=== PATIENT | female | born 1980 | race Two or more races ===

== ENCOUNTER → 2024-07-17 | Outpatient (CLI) | payer MEDICAID, SELFPAY ==
--- NOTE | 2024-07-17 09:30 | XR_ITS ---
Examination: Screening digital mammography, bilateral Computer aided detection 3-D breast Tomosynthesis, bilateral Date and time of exam: July 17, 2024 0941 hours Compared to mammograms dating to June 26, 2019 Indication: Screening Technique: Nonmagnified MLO, CC views of the breasts to been obtained, reconstructed from 3-D Tomosynthesis images. R2 computer aided detection program utilized for evaluation of suspicious masses and/or abnormal calcifications. 3-D Tomosynthesis images obtained. Findings: The breasts are heterogeneously dense, which may obscure small masses Breast biopsy marker inner upper right breast Benign calcifications No suspicious masses Impression: BI-RADS Category 0: Incomplete: Need additional imaging evaluation Please see the left breast sonogram report July 28, 2023 demonstrating 2:00 10:00 nodules, follow-up left breast sonography at this time strongly recommended
== END | disposition home or self-care (01) ==
PROVIDERS: PCP Nurse Practitioner Family; Referring Provider Nurse Practitioner Family; Visit Provider Nurse Practitioner Family
DX: Z12.31 Encounter for screening mammogram for malignant neoplasm of breast (principal); N63.22 Unspecified lump in the left breast, upper inner quadrant; N63.21 Unspecified lump in the left breast, upper outer quadrant
CPT/HCPCS: 77063; 77067

== ENCOUNTER → 2024-08-22 | Outpatient (CLI) | payer MEDICAID, SELFPAY ==
--- NOTE | 2024-08-22 10:20 | XR_ITS ---
Examination: Hand, right 3 views Technique: Hand AP, oblique, lateral 3 views Date and time of exam: August 22, 2024 1120 hours Comparison none indications: Injury to the hand and wrist August 04, 2024 FINDINGS: Subacute impacted fracture distal radial metaphysis, satisfactory alignment Bones of the hand intact IMPRESSION: Subacute healing fracture distal radial metaphysis with satisfactory alignment
--- NOTE | 2024-08-22 10:20 | XR_ITS ---
Examination: Wrist, right 3 views Technique: Wrist AP, oblique, lateral 3 views Date and time of exam: August 22, 2024 1120 hours INDICATIONS: Wrist injury August 04, 2024 FINDINGS: Subacute healing fracture distal radial metaphysis Satisfactory alignment Carpal bones intact IMPRESSION: Subacute healing fracture distal radial metaphysis with satisfactory alignment
== END | disposition home or self-care (01) ==
PROVIDERS: PCP Nurse Practitioner Family
DX: S52.91XA Unspecified fracture of right forearm, initial encounter for closed fracture (principal); S69.91XA Unspecified injury of right wrist, hand and finger(s), initial encounter; X58.XXXA Exposure to other specified factors, initial encounter
CPT/HCPCS: 73110; 73130

== ENCOUNTER → 2024-09-05 | Outpatient (CLI) | payer MEDICAID, SELFPAY ==
--- NOTE | 2024-09-05 09:23 | XR_ITS ---
Examination: Wrist, right 3 views Technique: Wrist AP, oblique, lateral 3 views Date and time of exam: September 05, 2024 0945 hours Comparison August 22, 2024 INDICATIONS: History wrist fracture July 2024 FINDINGS: Partial healing fracture distal radial metaphysis with stable and satisfactory alignment IMPRESSION: Partial healing fracture distal radial metaphysis with stable and satisfactory alignment
== END | disposition home or self-care (01) ==
PROVIDERS: PCP Nurse Practitioner Family; Referring Provider Surgery; Visit Provider Surgery
DX: S52.91XA Unspecified fracture of right forearm, initial encounter for closed fracture (principal); X58.XXXA Exposure to other specified factors, initial encounter
CPT/HCPCS: 73110

== ENCOUNTER → 2024-09-26 | Outpatient (CLI) | payer MEDICAID, SELFPAY ==
--- NOTE | 2024-09-26 10:36 | XR_ITS ---
Examination: Wrist, right 3 views Technique: Wrist AP, oblique, lateral 3 views Date and time of exam: September 26, 2024 1041 hours INDICATIONS: Right hand and wrist pain beginning 5 weeks ago after falling FINDINGS: Stable alignment fracture distal radial metaphysis with partial healing Severe osteopenia Carpal bones intact IMPRESSION: Stable alignment fracture distal radial metaphysis with partial healing
--- NOTE | 2024-09-26 10:36 | XR_ITS ---
Examination: Hand, right 3 views Technique: Hand AP, oblique, lateral 3 views Date and time of exam: September 26, 2024 1041 hours INDICATIONS: Patient fell 5 weeks ago with injury to the wrist, wrist pain FINDINGS: Moderate osteopenia Acute fracture distal radial metaphysis without significant displacement No opaque foreign body IMPRESSION: Acute fracture distal radial metaphysis without significant displacement
== END | disposition home or self-care (01) ==
PROVIDERS: PCP Obstetrics & Gynecology
DX: S52.91XA Unspecified fracture of right forearm, initial encounter for closed fracture (principal); W19.XXXA Unspecified fall, initial encounter
CPT/HCPCS: 73110; 73130

== ENCOUNTER → 2024-10-08 | Outpatient (CLI) | payer MEDICAID, SELFPAY | END | disposition home or self-care (01) | PROVIDERS: PCP Nurse Practitioner Family; Referring Provider Nurse Practitioner Family; Visit Provider Nurse Practitioner Family | DX: Z53.8 Procedure and treatment not carried out for other reasons (principal) ==

== ENCOUNTER → 2024-10-10 | Outpatient (CLI) | payer MEDICAID, SELFPAY ==
--- NOTE | 2024-10-10 09:20 | XR_ITS ---
Examination: Wrist, right 3 views Technique: Wrist AP, oblique, lateral 3 views Date and time of exam: October 10, 2024 0924 hrs. Indications: Wrist pain years. Findings: Prominent osteopenia Mild to moderate narrowing radiocarpal intercarpal carpometacarpal joints No fractures No erosive arthritis No avascular necrosis Impression: Prominent osteopenia Mild to moderate narrowing radiocarpal, intercarpal and carpometacarpal joints
--- NOTE | 2024-10-10 09:20 | XR_ITS ---
Examination: Hand, right 3 views Technique: Hand AP, oblique, lateral 3 views Date and time of exam: October 10, 2024 0924 hrs. Indications: Chronic hand pain years Findings: Severe osteopenia Mild to moderate diffuse narrowing joints of the wrist and hand No erosive arthritis No fractures No avascular necrosis No opaque foreign bodies Impression: Mild to moderate diffuse narrowing joints of the wrist and hand No erosive arthritis
== END | disposition home or self-care (01) ==
DX: M25.831 Other specified joint disorders, right wrist (principal); M85.841 Other specified disorders of bone density and structure, right hand
CPT/HCPCS: 73110; 73130

== ENCOUNTER → 2024-10-23 | Outpatient (CLI) | payer MEDICAID, SELFPAY ==
--- NOTE | 2024-10-23 09:10 | XR_ITS ---
Examination: Wrist, right 3 views Technique: Wrist AP, oblique, lateral 3 views Date and time of exam: October 2024 0925 hrs. Comparison October 10, 2024 Indications: History right wrist fracture 3 months ago. Findings: Healed fracture distal radial metaphysis with satisfactory alignment No acute fracture Prominent osteopenia Impression: Healed fracture distal radial metaphysis with satisfactory alignment
--- NOTE | 2024-10-23 09:10 | XR_ITS ---
Examination: Hand, right 3 views Technique: Hand AP, oblique, lateral 3 views Date and time of exam: October 23, 2024 0925 hrs. Indications: Right wrist fracture 3 months ago. Findings: Healed fracture distal radius Severe osteopenia No acute fracture No cortical bone destruction Impression: Healed fracture distal radius with satisfactory alignment
== END | disposition home or self-care (01) ==
PROVIDERS: PCP Nurse Practitioner Family
DX: M25.531 Pain in right wrist (principal); M79.641 Pain in right hand; Z87.81 Personal history of (healed) traumatic fracture
CPT/HCPCS: 73110; 73130

== ENCOUNTER → 2024-11-12 | Outpatient (CLI) | payer MEDICAID, SELFPAY ==
--- NOTE | 2024-11-12 13:00 | XR_ITS ---
Examination: Breast ultrasound, unilateral, right complete Date and time of exam: November 12, 2024 1223 hours INDICATIONS: Right breast sonogram July 2023 2:00 nodule 12 mm 10:00 nodule 14 mm Technique: Real-time beatty scale ultrasonographic imaging performed right breast including all 4 quadrants as well as nipple retroareolar and axillary region. Findings: 2:00 nodule lobular margins 9 x 9 mm 10:00 nodule with breast biopsy marker 14 x 16 mm IMPRESSION: BI-RADS Category 3: Probably benign findings. One additional continued 6 month right breast sonogram follow-up is needed
== END | disposition home or self-care (01) ==
LOC: CDIM 12:56
PROVIDERS: PCP Nurse Practitioner Family; Referring Provider Nurse Practitioner Family; Visit Provider Nurse Practitioner Family
DX: N63.11 Unspecified lump in the right breast, upper outer quadrant (principal); N63.12 Unspecified lump in the right breast, upper inner quadrant
CPT/HCPCS: 76641

== ENCOUNTER → 2025-05-29 | Outpatient (CLI) | payer MEDICAID, SELFPAY ==
--- NOTE | 2025-05-29 11:30 | XR_ITS ---
Examination: Breast ultrasound, unilateral, left complete Date and time of exam: May 29, 2025, 1140 hours INDICATIONS: Family history breast cancer, left breast sonogram November 12, 2024 2:00 nodule 9 x 9 mm 10:00 nodule 14 x 16 mm Technique: Real-time beatty scale ultrasonographic imaging performed left breast including all 4 quadrants as well as nipple retroareolar and axillary region. Findings: 2:00 nodule lobular margins 11 x 9 mm 10:00 nodule lobular margins 14 x 15 mm with breast biopsy marker IMPRESSION: BI-RADS Category 3: Probably benign findings Recommend 1 additional 6-month right breast sonogram follow-up to document continued stability of solid nodules described above
== END | disposition home or self-care (01) ==
PROVIDERS: PCP Nurse Practitioner Family; Referring Provider Nurse Practitioner Family; Visit Provider Nurse Practitioner Family
DX: N63.11 Unspecified lump in the right breast, upper outer quadrant (principal); Z80.3 Family history of malignant neoplasm of breast; N63.12 Unspecified lump in the right breast, upper inner quadrant
CPT/HCPCS: 76641